=== PATIENT | male | born 1935 | race Caucasian/White ===

== ENCOUNTER 2023-03-08 14:31 | Inpatient (IN) | payer MEDICARE, SELFPAY ==
[~2023-03-08 14:31] MED LIST: Iopamidol-370 76% 500 ML MDV (1 ML CHARGE) ONE
[2023-03-08] MEDS ORDERED: Vancomycin 1.5 GRAM/300 ML BAG 1.5 GM in Premix Bag 1 BAG IVPB SCH (15:00)
[2023-03-08 15:04] LABS: #Neutrophils 8.5 thou/uL (1.40-6.50); %Basophils 0.2 % (0.0-1.0); %Eosinophils 0.2 % (0.0-10.0); %Monocytes 0.2 % (0.0-10.0); %Neutrophils 97.8 % (42.0-75.0); Hemoglobin 12.5 g/dL (14.0-18.0); Mean Corpuscular HGB CONC 33.8 g/dL (32.0-36.0); Mean Corpuscular Hemoglobin 30.2 pg (27.0-31.0); Mean Corpuscular Volume 89.4 fl (78.0-98.0); Mean Platelet Volume 10.8 fL (7.4-10.4); Platelet Count 227 10x3/uL (130-400); RBC Distribution Width 12.2 % (11.5-14.5); Red Blood Cell (RBC) Count 4.14 mill/uL (4.70-6.10); White Blood Cell (WBC) Count 8.7 10x3/uL (4.8-10.8)
[2023-03-08] MEDS ORDERED: Cefepime 2 GM VIAL ONE (15:05)
[2023-03-08 15:07] LABS: Actual Bicarbonate (HCO3v) 19.4 mEq/L (22-28); Base Excess -3.8 mEq/L (-2.0 to +3.0); Calcium, Ionized (venous) 1.11 mmol/L (1.16-1.32); Chloride (VBG) 102 mmol/L (98-106); Hematocrit-VBG 41 % (42.0-52.0); Hemoglobin (Hb) 13.8 g/dL (12.6-17.4); Potassium (VBG) 2.89 mmol/L (3.70-5.30); Sodium 133 mmol/L (133-146); pH (venous) 7.427 (7.32-7.43)
[2023-03-08 15:27] LABS: ALT (SGPT) 19 U/L (8-55); AST (SGOT) 30 U/L (5-34); Albumin 3.1 g/dL (3.4-4.8); Alkaline Phosphatase 101 U/L (40-110); Anion Gap 12 mmol/L (10-20); BUN (Urea Nitrogen) 19 mg/dL (8.4-25.7); Bilirubin, Total 0.7 mg/dL (0.2-1.2); Calc. Creatinine Clearance 0 mL/min (70-130); Calcium 8.8 mg/dL (7.8-10.44); Carbon Dioxide 21 mmol/L (23-31); Chloride 103 mmol/L (98-107); Estimated GFR 39; Globulin 3.6 g/dL (2.4-3.5); Glucose 103 mg/dL (83-110); Potassium 2.9 mmol/L (3.5-5.1); Protein, Total 6.7 g/dL (5.8-8.1); Sodium 133 mmol/L (136-145)
[2023-03-08 15:41] LABS: Bilirubin Negative (Negative); Blood, Urine Large (Negative); Glucose, Urine (Dipstick) Negative (Negative); Ketone, Urine Negative (Negative); Leukocyte Moderate (Negative); Nitrite Negative (Negative); Protein, Urine (Dipstick) > or equal to 300 mg/dL (Neg-Trace); Specific Gravity, Urine 1.015 (1.005-1.030); pH, Urine 8.5 (5.0-9.0)
[2023-03-08 15:44] LABS: Clarity Bloody (Clear)
[2023-03-08 15:49] LABS: CAUTI Indications for Culture Dysuria,urgency,freq; RBC/HPF Greater than 50 HPF (0-3)
[2023-03-08 15:50] LABS: WBC/HPF 21-50 HPF (0-3)
[2023-03-08 15:51] LABS: Urine Culture Reflex Yes Yes
[2023-03-08] MEDS ORDERED: VANCOMYCIN IVPB PRN (17:00)
[2023-03-08] MEDS ORDERED: [UNRECOGNIZED DRUG - OTHER] IVPB PRN (17:00)
[2023-03-08] MEDS ORDERED: Electrolyte Replacement Protocol 1 EACH FS SCH (17:00)
[2023-03-08] MEDS ORDERED: Acetaminophen 325 MG TAB PO PRN (17:00)
[2023-03-08] MEDS ORDERED: Metoclopramide HCl 10 MG/2 ML VIAL IVP PRN (17:04)
[2023-03-08] MEDS ORDERED: Magnesium 2 GM/50 ML BAG (IN WATER) ONE (17:39)
[2023-03-08 18:09] LABS: Magnesium 1.7 mg/dL (1.6-2.6)
[2023-03-08 19:20] VITALS: BMI 26.2
[2023-03-08] MEDS: NS 0.9% w/ 40 MEQ KCL 1,000 ML IV SCH (20:30)
[2023-03-08] MEDS: Famotidine/PF 20 mg/2ml Vial SLOW IVP SCH (20:55)
[2023-03-09] MEDS ORDERED: Cefepime 1 GM in Sodium Chloride 0.9% 100 ML IVPB SCH (03:00)
[2023-03-09 04:00] LABS: Hematocrit 32.2 % (42.0-52.0); Hemoglobin 10.7 g/dL (14.0-18.0); Mean Corpuscular HGB CONC 33.2 g/dL (32.0-36.0); Mean Corpuscular Hemoglobin 30.4 pg (27.0-31.0); Mean Corpuscular Volume 91.5 fl (78.0-98.0); Platelet Count 203 10x3/uL (130-400); RBC Distribution Width 12.7 % (11.5-14.5); Red Blood Cell (RBC) Count 3.52 mill/uL (4.70-6.10); White Blood Cell (WBC) Count 35.4 10x3/uL (4.8-10.8)
[2023-03-09 04:20] LABS: Delete Auto Diff?? YES; Manual Diff?? YES
[2023-03-09 04:25] LABS: Anion Gap 10 mmol/L (10-20); BUN (Urea Nitrogen) 20 mg/dL (8.4-25.7); Calc. Creatinine Clearance 33 mL/min (70-130); Calcium 7.8 mg/dL (7.8-10.44); Carbon Dioxide 18 mmol/L (23-31); Chloride 110 mmol/L (98-107); Estimated GFR 36; Glucose 118 mg/dL (83-110); Potassium 3.1 mmol/L (3.5-5.1); Sodium 135 mmol/L (136-145)
[2023-03-09] MEDS: NS 0.9% w/ 40 MEQ KCL 1,000 ML IV SCH (05:54)
[2023-03-09] MEDS: Potassium Chloride 20 MEQ in Premix Bag 1 BAG IVPB SCH ×2 (05:55→08:35)
[2023-03-09 06:33] LABS: Anisocytosis SLIGHT = 6-15 cells HPF (0-5); Band 19 % (5-11); Burr Cells SLIGHT = 2-5 cells HPF (0-1); CellaVision Operator ID LAB.JMM; Large Platelets 1.9 % (0-5); Lymphocytes 2 % (21-51); Macrocytosis SLIGHT = 6-15 cells HPF (0-5); Metamyelocyte 7 % (0-0); Monocytes 4 % (0-10); Myelocyte 1 % (0-0); Neutrophil 67 % (42-75); Platelet Adequacy Comment Platelets Normal; Polychromasia SLIGHT = 2-3 cells HPF (0-2); Total Cell Count 103
[2023-03-09] MEDS ORDERED: Magnesium 2 GM/50 ML(in water) 2 GM in Premix Bag 1 BAG IVPB SCH (08:00)
[2023-03-09] MEDS ORDERED: FLU VACC QS2023(65UP)/MF59C/PF 60 MCG/0.5 ML SYRINGE IM ONE (09:00)
[2023-03-09] MEDS ORDERED: Meropenem 1 GM in Sodium Chloride 0.9% 100 ML IVPB SCH (12:00)
[2023-03-09] MEDS ORDERED: Sodium Chloride 0.9% 1,000 ML IV SCH (12:30)
[2023-03-09] MEDS ORDERED: Vancomycin 1 GM in Premix Bag 1 BAG IVPB SCH (16:00)
[2023-03-09 18:28] LABS: Anion Gap 12 mmol/L (10-20); BUN (Urea Nitrogen) 24 mg/dL (8.4-25.7); Calc. Creatinine Clearance 34 mL/min (70-130); Calcium 8.1 mg/dL (7.8-10.44); Carbon Dioxide 16 mmol/L (23-31); Chloride 111 mmol/L (98-107); Estimated GFR 38; Glucose 117 mg/dL (83-110); Potassium 3.8 mmol/L (3.5-5.1); Sodium 135 mmol/L (136-145)
[2023-03-09] MEDS: Famotidine/PF 20 mg/2ml Vial SLOW IVP SCH (19:46)
[2023-03-09] MEDS: Meropenem 500 MG in Sodium Chloride 0.9% 100 ML IVPB SCH (19:47)
[2023-03-10 04:08] LABS: Hematocrit 31.2 % (42.0-52.0); Hemoglobin 10.4 g/dL (14.0-18.0); Mean Corpuscular HGB CONC 33.3 g/dL (32.0-36.0); Mean Corpuscular Hemoglobin 30.4 pg (27.0-31.0); Mean Corpuscular Volume 91.2 fl (78.0-98.0); Mean Platelet Volume 11.7 fL (7.4-10.4); Platelet Count 211 10x3/uL (130-400); RBC Distribution Width 12.9 % (11.5-14.5); Red Blood Cell (RBC) Count 3.42 mill/uL (4.70-6.10); White Blood Cell (WBC) Count 30.1 10x3/uL (4.8-10.8)
[2023-03-10 04:32] LABS: Anion Gap 10 mmol/L (10-20); BUN (Urea Nitrogen) 23 mg/dL (8.4-25.7); Calc. Creatinine Clearance 39 mL/min (70-130); Calcium 8.5 mg/dL (7.8-10.44); Carbon Dioxide 19 mmol/L (23-31); Chloride 111 mmol/L (98-107); Estimated GFR 45; Glucose 98 mg/dL (83-110); Potassium 3.8 mmol/L (3.5-5.1); Sodium 136 mmol/L (136-145)
[2023-03-10 04:35] LABS: Delete Auto Diff?? YES; Manual Diff?? YES
[2023-03-10 05:05] LABS: Band 18 % (5-11); Burr Cells SLIGHT = 2-5 cells HPF (0-1); CellaVision Operator ID lab.abc; Eosinophils 3 % (0-10); Lymphocytes 3 % (21-51); Macrocytosis MODERATE=16-30 cells HPF (0-5); Monocytes 1 % (0-10); Neutrophil 75 % (42-75); Platelet Adequacy Comment Platelets Normal; RBC Morphology Within Normal Limits; Total Cell Count 101
[2023-03-10] MEDS: Meropenem 500 MG in Sodium Chloride 0.9% 100 ML IVPB SCH (09:49)
[2023-03-10] MEDS ORDERED: Furosemide 40 MG TAB PO SCH (14:15)
[2023-03-10] MEDS ORDERED: cefTRIAXone\\ROCEPHIN 2 GM in Sodium Chloride 0.9% 100 ML IVPB SCH (15:00)
[2023-03-10] MEDS ORDERED: Meropenem 1 GM in Sodium Chloride 0.9% 100 ML IVPB SCH (20:00)
[2023-03-10] MEDS: Famotidine/PF 20 mg/2ml Vial SLOW IVP SCH (21:36)
[2023-03-10] MEDS: Cefepime 1 GM in Sodium Chloride 0.9% 100 ML IVPB SCH (21:36)
[2023-03-11 07:35] VITALS: TEMP 98.2
[2023-03-11] MEDS: Cefepime 1 GM in Sodium Chloride 0.9% 100 ML IVPB SCH (07:56)
[2023-03-11] MEDS ORDERED: Lisinopril 10 MG TAB PO SCH (09:00)
[2023-03-11 09:09] LABS: Hematocrit 35.7 % (42.0-52.0); Hemoglobin 11.9 g/dL (14.0-18.0); Mean Corpuscular HGB CONC 33.3 g/dL (32.0-36.0); Mean Corpuscular Hemoglobin 30.4 pg (27.0-31.0); Mean Corpuscular Volume 91.1 fl (78.0-98.0); Mean Platelet Volume 11.4 fL (7.4-10.4); Platelet Count 232 10x3/uL (130-400); RBC Distribution Width 13.1 % (11.5-14.5); Red Blood Cell (RBC) Count 3.92 mill/uL (4.70-6.10); White Blood Cell (WBC) Count 21.2 10x3/uL (4.8-10.8)
[2023-03-11 12:34] VITALS: BP 169/84
[2023-03-11] MEDS ORDERED: Ciprofloxacin 500 MG TAB PO SCH (20:00)
== END 2023-03-11 15:17 | DRG 698 ==
LOC: ERS 14:31 → IMCU/EMU 16:31 → T4-A 03-10 15:30
PROVIDERS: ADMIT Family Medicine; ATTEND Internal Medicine
PROC: 4A043R1 Measurement of Venous Saturation, Peripheral, Percutaneous Approach (ICD-10-PCS; 2023-03-08)
PROC: 3E03329 Introduction of Other Anti-infective into Peripheral Vein, Percutaneous Approach (ICD-10-PCS; 2023-03-08)
PROC: 0T9B80Z Drainage of Bladder with Drainage Device, Via Natural or Artificial Opening Endoscopic (ICD-10-PCS; principal; 2023-03-09)
DX: T83.511A Infection and inflammatory reaction due to indwelling urethral catheter, initial encounter (principal); A41.59 Other Gram-negative sepsis; J18.9 Pneumonia, unspecified organism; R65.21 Severe sepsis with septic shock; E87.1 Hypo-osmolality and hyponatremia; T83.021A Displacement of indwelling urethral catheter, initial encounter; N39.0 Urinary tract infection, site not specified; Z66 Do not resuscitate; N40.1 Benign prostatic hyperplasia with lower urinary tract symptoms; N32.89 Other specified disorders of bladder; F03.90 Unspecified dementia, unspecified severity, without behavioral disturbance, psychotic disturbance, mood disturbance, and anxiety; E87.6 Hypokalemia; I12.9 Hypertensive chronic kidney disease with stage 1 through stage 4 chronic kidney disease, or unspecified chronic kidney disease; K80.20 Calculus of gallbladder without cholecystitis without obstruction; N21.0 Calculus in bladder; N18.32 Chronic kidney disease, stage 3b; N31.9 Neuromuscular dysfunction of bladder, unspecified; Z88.0 Allergy status to penicillin; Z98.41 Cataract extraction status, right eye; Z98.42 Cataract extraction status, left eye; Z98.890 Other specified postprocedural states; R31.0 Gross hematuria; I45.81 Long QT syndrome; Y84.6 Urinary catheterization as the cause of abnormal reaction of the patient, or of later complication, without mention of misadventure at the time of the procedure; Z94.7 Corneal transplant status; Z82.49 Family history of ischemic heart disease and other diseases of the circulatory system; Z83.3 Family history of diabetes mellitus
CPT/HCPCS: 36415; 51702; 71045; 74177; 80048; 80053; 81001; 82805; 83605; 83735; 84145; 85025; 85027; 87040; 87077; 87086; 87149; 87186; 93005; 96361; 96365; 96367; J0692; J0696; J2185; J3370; J3475; J3480; J3490; J7030; J7050; Q9967; S0028

== ENCOUNTER 2023-04-19 13:38 | Inpatient (IN) | payer MEDICARE ==
[2023-04-19 15:15] LABS: #Monocytes 0.9 thou/uL (0.11-0.59); #Neutrophils 16.2 thou/uL (1.40-6.50); %Basophils 0.2 % (0.0-1.0); %Eosinophils 0.1 % (0.0-10.0); %Lymphocytes 5.3 % (21.0-51.0); %Monocytes 5.1 % (0.0-10.0); %Neutrophils 88.9 % (42.0-75.0); Hematocrit 39.3 % (42.0-52.0); Hemoglobin 13.3 g/dL (14.0-18.0); Mean Corpuscular HGB CONC 33.8 g/dL (32.0-36.0); Mean Corpuscular Hemoglobin 28.8 pg (27.0-31.0); Mean Corpuscular Volume 85.1 fl (78.0-98.0); Mean Platelet Volume 12.5 fL (7.4-10.4); Platelet Count 153 10x3/uL (130-400); RBC Distribution Width 15.8 % (11.5-14.5); Red Blood Cell (RBC) Count 4.62 mill/uL (4.70-6.10); White Blood Cell (WBC) Count 18.2 10x3/uL (4.8-10.8)
[2023-04-19 15:42] LABS: ALT (SGPT) 15 U/L (8-55); AST (SGOT) 23 U/L (5-34); Albumin 2.8 g/dL (3.4-4.8); Alkaline Phosphatase 152 U/L (40-110); Anion Gap 22 mmol/L (10-20); BUN (Urea Nitrogen) 80 mg/dL (8.4-25.7); Bilirubin, Total 0.8 mg/dL (0.2-1.2); Calc. Creatinine Clearance 0 mL/min (70-130); Calcium 8.3 mg/dL (7.8-10.44); Carbon Dioxide 17 mmol/L (23-31); Chloride 98 mmol/L (98-107); Estimated GFR 7; Globulin 3.5 g/dL (2.4-3.5); Glucose 87 mg/dL (83-110); Potassium 4.2 mmol/L (3.5-5.1); Protein, Total 6.3 g/dL (5.8-8.1); Sodium 133 mmol/L (136-145)
[2023-04-19] MEDS ORDERED: Sodium Chloride 0.9% 100 ML ONE (16:28)
[2023-04-19] MEDS ORDERED: Piperacillin/Tazobactam 3.375 GM VIAL ONE (16:28)
[2023-04-19] MEDS ORDERED: Vancomycin 1 GM/200 ML (FROZEN) BAG ONE (17:19)
[2023-04-19 18:05] LABS: Bacteria/HPF 4+ HPF (None Seen); Bilirubin Negative (Negative); Blood, Urine 2+ (Negative); CAUTI Indications for Culture Dysuria,urgency,freq; Clarity Extra Turbid (Clear); Glucose, Urine (Dipstick) Normal (Negative); Ketone, Urine Negative (Negative); Leukocyte 500 Leu/uL (Negative); Nitrite Negative (Negative); Protein, Urine (Dipstick) 100 mg/dL (Neg-Trace); RBC/HPF 21-50 HPF (0-3); Specific Gravity, Urine 1.008 (1.002-1.036); Squamous Epithelial None Seen HPF (0-3); Urobilinogen Normal mg/dL (Less than 2); WBC/HPF Greater than 50 HPF (0-3)
[2023-04-19 18:18] LABS: Urine Culture Reflex Yes Yes
[2023-04-19] MEDS ORDERED: Ondansetron ODT 4 MG TAB PO PRN (19:06)
[2023-04-19] MEDS ORDERED: Ondansetron PF 4 MG/2 ML Vial IVP PRN (19:06)
[2023-04-19 19:13] VITALS: BMI 25.1
[2023-04-19] MEDS ORDERED: Albumin 25% 25 GM/100 ML BOT IVPB SCH (19:53)
[2023-04-19] MEDS ORDERED: Meropenem 1 GM in Sodium Chloride 0.9% 100 ML IVPB SCH (20:00)
[2023-04-19] MEDS: Sodium Bicarbonate 150 MEQ in Dextrose 5% in Water 1,000 ML IV SCH (20:10)
[2023-04-19] MEDS: Meropenem 0.5 GM in Sodium Chloride 0.9% 100 ML IVPB SCH (23:47)
[2023-04-20 04:36] LABS: Creatinine, Urine 34.23 mg/dL (63-166)
[2023-04-20 05:29] LABS: #Neutrophils 15.1 thou/uL (1.40-6.50); %Basophils 0.1 % (0.0-1.0); %Eosinophils 0.2 % (0.0-10.0); %Lymphocytes 3.6 % (21.0-51.0); %Monocytes 5.8 % (0.0-10.0); %Neutrophils 89.7 % (42.0-75.0); Hematocrit 30.5 % (42.0-52.0); Mean Corpuscular HGB CONC 33.4 g/dL (32.0-36.0); Mean Corpuscular Hemoglobin 28.4 pg (27.0-31.0); Mean Platelet Volume 11.9 fL (7.4-10.4); Platelet Count 129 10x3/uL (130-400); RBC Distribution Width 15.6 % (11.5-14.5); Red Blood Cell (RBC) Count 3.59 mill/uL (4.70-6.10); White Blood Cell (WBC) Count 16.8 10x3/uL (4.8-10.8)
[2023-04-20 05:40] LABS: Hemoglobin 10.2 g/dL (14.0-18.0)
[2023-04-20 05:58] LABS: Albumin 2.9 g/dL (3.4-4.8); Anion Gap 20 mmol/L (10-20); BUN (Urea Nitrogen) 83 mg/dL (8.4-25.7); BUN/Creatinine Ratio 11.61; Calc. Creatinine Clearance 8 mL/min (70-130); Calcium 8.3 mg/dL (7.8-10.44); Carbon Dioxide 19 mmol/L (23-31); Chloride 98 mmol/L (98-107); Estimated GFR 7; Glucose 148 mg/dL (83-110); Phosphorus 3.2 mg/dL (2.3-4.7); Potassium 3.4 mmol/L (3.5-5.1); Sodium 134 mmol/L (136-145)
[2023-04-20 05:59] LABS: Iron 13 ug/dL (65-175); Iron Binding Capacity, Total 118 mcg/dL (261-462)
[2023-04-20] MEDS ORDERED: Potassium Chloride 20 MEQ TAB PO SCH (07:00)
[2023-04-20] MEDS ORDERED: Albumin 25% 25 GM/100 ML BOT IVPB SCH (07:00)
[2023-04-20 08:24] LABS: Magnesium 2.4 mg/dL (1.6-2.6)
[2023-04-20] MEDS ORDERED: FLU VACC QS2023(65UP)/MF59C/PF 60 MCG/0.5 ML SYRINGE IM ONE (09:00)
[2023-04-20] MEDS: Meropenem 0.5 GM in Sodium Chloride 0.9% 100 ML IVPB SCH (10:22)
[2023-04-20] MEDS: Sodium Bicarbonate 150 MEQ in Dextrose 5% in Water 1,000 ML IV SCH ×2 (11:05→21:29)
[2023-04-20] MEDS: Iron, Sodium Ferric Gluconate 250 MG in Sodium Chloride 0.9% 250 ML 250 ML IVPB SCH (11:58)
[2023-04-20] MEDS: Albumin 25% 25 GM/100 ML BOT IVPB SCH ×3 (13:45→23:23)
[2023-04-20] MEDS ORDERED: hydrALAZINE 25 MG TAB PO PRN (14:43)
[2023-04-20] MEDS: Heparin 5,000 UNITS/ML VIAL SC SCH (20:50)
[2023-04-21] MEDS: Sodium Bicarbonate 150 MEQ in Dextrose 5% in Water 1,000 ML IV SCH ×2 (01:37→17:46)
[2023-04-21] MEDS: Albumin 25% 25 GM/100 ML BOT IVPB SCH ×4 (05:34→23:24)
[2023-04-21 05:40] LABS: #Eosinphils 0.1 thou/uL (0.0-0.7); #Neutrophils 11.2 thou/uL (1.40-6.50); %Basophils 0.1 % (0.0-1.0); %Lymphocytes 7.1 % (21.0-51.0); %Monocytes 7.1 % (0.0-10.0); %Neutrophils 83.4 % (42.0-75.0); Hematocrit 26.9 % (42.0-52.0); Hemoglobin 8.9 g/dL (14.0-18.0); Mean Corpuscular HGB CONC 33.1 g/dL (32.0-36.0); Mean Corpuscular Hemoglobin 27.6 pg (27.0-31.0); Mean Corpuscular Volume 83.3 fl (78.0-98.0); Mean Platelet Volume 12.7 fL (7.4-10.4); Platelet Count 125 10x3/uL (130-400); RBC Distribution Width 15.6 % (11.5-14.5); Red Blood Cell (RBC) Count 3.23 mill/uL (4.70-6.10); White Blood Cell (WBC) Count 13.4 10x3/uL (4.8-10.8)
[2023-04-21 06:17] LABS: Albumin 3.3 g/dL (3.4-4.8); Anion Gap 18 mmol/L (10-20); BUN (Urea Nitrogen) 89 mg/dL (8.4-25.7); BUN/Creatinine Ratio 12.47; Calc. Creatinine Clearance 8 mL/min (70-130); Calcium 8.2 mg/dL (7.8-10.44); Carbon Dioxide 24 mmol/L (23-31); Chloride 95 mmol/L (98-107); Estimated GFR 7; Glucose 119 mg/dL (83-110); Phosphorus 2.9 mg/dL (2.3-4.7); Potassium 3.2 mmol/L (3.5-5.1); Sodium 134 mmol/L (136-145)
[2023-04-21] MEDS: Potassium Chloride 20 MEQ TAB PO SCH ×3 (06:44→12:35)
[2023-04-21] MEDS ORDERED: Meropenem 0.5 GM in Sodium Chloride 0.9% 100 ML IVPB SCH (09:00)
[2023-04-21] MEDS: Meropenem 500 MG in Sodium Chloride 0.9% 100 ML IVPB SCH (09:21)
[2023-04-21] MEDS: Heparin 5,000 UNITS/ML VIAL SC SCH ×2 (09:23→21:52)
[2023-04-21] MEDS: Iron, Sodium Ferric Gluconate 250 MG in Sodium Chloride 0.9% 250 ML 250 ML IVPB SCH (10:04)
[2023-04-21] MEDS ORDERED: Epoetin (ESRD) 10,000 UNITS/ML VIAL SC SCH (14:00)
[2023-04-21] MEDS: EPOETIN ALFA-EPBX 10,000 UNITS/ML VIAL SC SCH (14:33)
[2023-04-21 16:56] LABS: Creatinine, Urine 26.21 mg/dL (63-166)
[2023-04-22] MEDS: Albumin 25% 25 GM/100 ML BOT IVPB SCH (05:11)
[2023-04-22] MEDS: Sodium Bicarbonate 150 MEQ in Dextrose 5% in Water 1,000 ML IV SCH ×2 (05:15→17:23)
[2023-04-22 05:19] LABS: #Eosinphils 0.1 thou/uL (0.0-0.7); #Neutrophils 13.3 thou/uL (1.40-6.50); %Basophils 0.2 % (0.0-1.0); %Eosinophils 0.6 % (0.0-10.0); %Lymphocytes 6.9 % (21.0-51.0); %Monocytes 6.2 % (0.0-10.0); %Neutrophils 85.2 % (42.0-75.0); Hematocrit 25.4 % (42.0-52.0); Hemoglobin 8.7 g/dL (14.0-18.0); Mean Corpuscular HGB CONC 34.3 g/dL (32.0-36.0); Mean Corpuscular Hemoglobin 28.4 pg (27.0-31.0); Mean Platelet Volume 11.9 fL (7.4-10.4); Platelet Count 140 10x3/uL (130-400); RBC Distribution Width 15.5 % (11.5-14.5); Red Blood Cell (RBC) Count 3.06 mill/uL (4.70-6.10); White Blood Cell (WBC) Count 15.6 10x3/uL (4.8-10.8)
[2023-04-22 06:06] LABS: Albumin 3.2 g/dL (3.4-4.8); Anion Gap 18 mmol/L (10-20); BUN (Urea Nitrogen) 94 mg/dL (8.4-25.7); BUN/Creatinine Ratio 12.77; Calc. Creatinine Clearance 8 mL/min (70-130); Carbon Dioxide 28 mmol/L (23-31); Chloride 90 mmol/L (98-107); Estimated GFR 7; Glucose 134 mg/dL (83-110); Phosphorus 3.1 mg/dL (2.3-4.7); Potassium 3.2 mmol/L (3.5-5.1); Sodium 133 mmol/L (136-145)
[2023-04-22] MEDS ORDERED: Amlodipine 5 MG TAB PO SCH ×2 (09:00→17:30)
[2023-04-22] MEDS: Isosorbide Mononitrate 30 MG ER.TAB PO SCH (09:33)
[2023-04-22] MEDS: Potassium Chloride 20 MEQ TAB PO SCH ×3 (09:33→18:36)
[2023-04-22] MEDS: Meropenem 500 MG in Sodium Chloride 0.9% 100 ML IVPB SCH (09:33)
[2023-04-22] MEDS: Heparin 5,000 UNITS/ML VIAL SC SCH ×2 (09:34→20:33)
[2023-04-22] MEDS: Iron, Sodium Ferric Gluconate 250 MG in Sodium Chloride 0.9% 250 ML 250 ML IVPB SCH (13:30)
[2023-04-22 19:16] LABS: Anion Gap 18 mmol/L (10-20); BUN (Urea Nitrogen) 96 mg/dL (8.4-25.7); Calc. Creatinine Clearance 8 mL/min (70-130); Calcium 7.9 mg/dL (7.8-10.44); Carbon Dioxide 29 mmol/L (23-31); Chloride 89 mmol/L (98-107); Estimated GFR 7; Glucose 123 mg/dL (83-110); Sodium 132 mmol/L (136-145)
[2023-04-22] MEDS: Acetaminophen 500 MG TAB PO PRN (20:33)
[2023-04-23] MEDS: Sodium Bicarbonate 150 MEQ in Dextrose 5% in Water 1,000 ML IV SCH (03:43)
[2023-04-23 06:54] LABS: Albumin 3.1 g/dL (3.4-4.8); Anion Gap 20 mmol/L (10-20); BUN (Urea Nitrogen) 94 mg/dL (8.4-25.7); BUN/Creatinine Ratio 12.58; Calc. Creatinine Clearance 8 mL/min (70-130); Calcium 7.9 mg/dL (7.8-10.44); Carbon Dioxide 31 mmol/L (23-31); Chloride 89 mmol/L (98-107); Estimated GFR 6; Glucose 126 mg/dL (83-110); Phosphorus 3.3 mg/dL (2.3-4.7); Potassium 4.5 mmol/L (3.5-5.1); Sodium 135 mmol/L (136-145)
[2023-04-23 08:02] LABS: #Eosinphils 0.1 thou/uL (0.0-0.7); #Monocytes 0.9 thou/uL (0.11-0.59); #Neutrophils 19.9 thou/uL (1.40-6.50); %Basophils 0.1 % (0.0-1.0); %Eosinophils 0.5 % (0.0-10.0); %Lymphocytes 5.1 % (21.0-51.0); %Monocytes 4.1 % (0.0-10.0); %Neutrophils 89.2 % (42.0-75.0); Hematocrit 28.8 % (42.0-52.0); Hemoglobin 9.4 g/dL (14.0-18.0); Mean Corpuscular HGB CONC 32.6 g/dL (32.0-36.0); Mean Corpuscular Hemoglobin 27.8 pg (27.0-31.0); Mean Corpuscular Volume 85.2 fl (78.0-98.0); Platelet Count 201 10x3/uL (130-400); RBC Distribution Width 15.8 % (11.5-14.5); Red Blood Cell (RBC) Count 3.38 mill/uL (4.70-6.10); White Blood Cell (WBC) Count 22.3 10x3/uL (4.8-10.8)
[2023-04-23] MEDS ORDERED: Sodium Chloride 0.9% 1,000 ML IV SCH (08:30)
[2023-04-23] MEDS ORDERED: Albumin 25% 25 GM/100 ML BOT IVPB SCH (08:45)
[2023-04-23] MEDS: Isosorbide Mononitrate 30 MG ER.TAB PO SCH (09:19)
[2023-04-23] MEDS: Amlodipine 5 MG TAB PO SCH (09:19)
[2023-04-23] MEDS: Heparin 5,000 UNITS/ML VIAL SC SCH ×2 (10:17→20:25)
[2023-04-23] MEDS: Meropenem 500 MG in Sodium Chloride 0.9% 100 ML IVPB SCH (10:18)
[2023-04-23 11:26] LABS: INR-International Normal Ratio 1.3; PTT 39.3 sec (22.9-36.1); Prothrombin Time 16.8 sec (12.0-14.7)
[2023-04-23 11:44] LABS: HBSAB Concentration Less than 8.00 mIU/mL; HBSAg Index 0.33 S/CO (0-0.99); Hep B Core Total Ab Non-Reactive (NonReactive); Hep B Core Total Index 0.15 S/CO (0-0.79); Hep B Surf AB Non-Reactive (NonReactive); Hep B Surf Ag Non-Reactive S/CO (NonReactive); Hep C IgG Ab Non-Reactive S/CO (NonReactive); Hep C Index 0.05 S/CO (0-0.79)
[2023-04-23] MEDS: Iron, Sodium Ferric Gluconate 250 MG in Sodium Chloride 0.9% 250 ML 250 ML IVPB SCH (13:23)
[2023-04-23] MEDS: Albumin 25% 25 GM/100 ML BOT IVPB SCH ×2 (14:01→18:14)
[2023-04-23 14:39] LABS: A/G Ratio 0.7 (0.7-1.7); Albumin 2.1 g/dL (2.9-4.4); Alpha 1 0.5 g/dL (0.0-0.4); Alpha 2 0.9 g/dL (0.4-1.0); Beta 0.6 g/dL (0.7-1.3); Gamma 1.1 g/dL (0.4-1.8); Globulin, Total 3.1 g/dL (2.2-3.9); M-Spike 0.3 g/dL (Not Observed)
[2023-04-24 05:57] LABS: #Eosinphils 0.2 thou/uL (0.0-0.7); #Monocytes 0.8 thou/uL (0.11-0.59); #Neutrophils 19.4 thou/uL (1.40-6.50); %Basophils 0.2 % (0.0-1.0); %Lymphocytes 5.5 % (21.0-51.0); %Monocytes 3.8 % (0.0-10.0); %Neutrophils 88.5 % (42.0-75.0); Hematocrit 27.9 % (42.0-52.0); Hemoglobin 9.2 g/dL (14.0-18.0); Mean Corpuscular Volume 84.8 fl (78.0-98.0); Mean Platelet Volume 12.1 fL (7.4-10.4); Platelet Count 223 10x3/uL (130-400); RBC Distribution Width 15.9 % (11.5-14.5); Red Blood Cell (RBC) Count 3.29 mill/uL (4.70-6.10); White Blood Cell (WBC) Count 21.9 10x3/uL (4.8-10.8)
[2023-04-24] MEDS ORDERED: Lidocaine 2% PF 5 ML VIAL ONE (06:36)
[2023-04-24] MEDS ORDERED: EPINEPHrine 1 MG/ML VIAL ONE (06:36)
[2023-04-24] MEDS ORDERED: Bupivacaine PF 0.5% 30 ML VIAL ONE (06:36)
[2023-04-24] MEDS ORDERED: Heparin 10,000 UNITS/ 10 ML VIAL ONE (06:36)
[2023-04-24] MEDS ORDERED: CEFAZOLIN 2 GM VIAL ONE (07:25)
[2023-04-24] MEDS ORDERED: Sodium Chloride 0.9% 100 ML ONE (07:25)
[2023-04-24 07:31] LABS: Anion Gap 20 mmol/L (10-20); BUN (Urea Nitrogen) 96 mg/dL (8.4-25.7); Calc. Creatinine Clearance 8 mL/min (70-130); Carbon Dioxide 29 mmol/L (23-31); Chloride 92 mmol/L (98-107); Estimated GFR 6; Glucose 88 mg/dL (83-110); Potassium 4.1 mmol/L (3.5-5.1); Sodium 137 mmol/L (136-145)
[2023-04-24] MEDS ORDERED: PROPOFOL 200 MG/20 ML VIAL ONE (07:39)
[2023-04-24] MEDS ORDERED: Ondansetron PF 4 MG/2 ML Vial ONE (07:39)
[2023-04-24] MEDS ORDERED: Lidocaine 1% PF 5 ML VIAL ONE (07:39)
[2023-04-24] MEDS: Amlodipine 5 MG TAB PO SCH (09:15)
[2023-04-24] MEDS: Meropenem 500 MG in Sodium Chloride 0.9% 100 ML IVPB SCH (09:57)
[2023-04-24] MEDS ORDERED: CEFAZOLIN 2 GM in Sodium Chloride 0.9% 100 ML IVPB SCH (10:00)
[2023-04-24] MEDS: Heparin 5,000 UNITS/ML VIAL SC SCH ×2 (10:14→20:23)
[2023-04-24] MEDS: Isosorbide Mononitrate 30 MG ER.TAB PO SCH (16:16)
[2023-04-24] MEDS: Metoprolol Tartrate 25 MG TAB PO SCH ×2 (16:16→20:23)
[2023-04-25] MEDS ORDERED: Heparin 10,000 UNITS/ 10 ML VIAL ONE (09:02)
[2023-04-25] MEDS: Meropenem 500 MG in Sodium Chloride 0.9% 100 ML IVPB SCH (09:51)
[2023-04-25] MEDS: Isosorbide Mononitrate 30 MG ER.TAB PO SCH (09:51)
[2023-04-25] MEDS: Metoprolol Tartrate 25 MG TAB PO SCH ×2 (09:51→19:53)
[2023-04-25] MEDS: Amlodipine 5 MG TAB PO SCH (09:52)
[2023-04-25] MEDS: Heparin 5,000 UNITS/ML VIAL SC SCH ×2 (09:52→19:53)
[2023-04-25 23:21] LABS: Immunoglob - A (Total IgA) 126 mg/dL (101-645); Immunoglob - G (Total IgG) 1093 mg/dL (Not Available); Immunoglob - M (Total IgM) 202 mg/dL (22-240)
[2023-04-26 06:37] LABS: #Eosinphils 0.3 thou/uL (0.0-0.7); #Monocytes 0.9 thou/uL (0.11-0.59); %Basophils 0.1 % (0.0-1.0); %Eosinophils 1.6 % (0.0-10.0); %Lymphocytes 7.8 % (21.0-51.0); %Monocytes 5.4 % (0.0-10.0); %Neutrophils 84.3 % (42.0-75.0); Hematocrit 27.4 % (42.0-52.0); Hemoglobin 8.7 g/dL (14.0-18.0); Mean Corpuscular HGB CONC 31.8 g/dL (32.0-36.0); Mean Corpuscular Hemoglobin 28.3 pg (27.0-31.0); Mean Corpuscular Volume 89.3 fl (78.0-98.0); Mean Platelet Volume 11.5 fL (7.4-10.4); Platelet Count 253 10x3/uL (130-400); RBC Distribution Width 16.2 % (11.5-14.5); Red Blood Cell (RBC) Count 3.07 mill/uL (4.70-6.10); White Blood Cell (WBC) Count 16.6 10x3/uL (4.8-10.8)
[2023-04-26 06:59] LABS: Anion Gap 16 mmol/L (10-20); BUN (Urea Nitrogen) 43 mg/dL (8.4-25.7); Calc. Creatinine Clearance 13 mL/min (70-130); Calcium 8.2 mg/dL (7.8-10.44); Carbon Dioxide 28 mmol/L (23-31); Chloride 97 mmol/L (98-107); Estimated GFR 12; Glucose 98 mg/dL (83-110); Potassium 3.7 mmol/L (3.5-5.1); Sodium 137 mmol/L (136-145)
[2023-04-26] MEDS: Meropenem 500 MG in Sodium Chloride 0.9% 100 ML IVPB SCH (09:33)
[2023-04-26] MEDS: Amlodipine 5 MG TAB PO SCH (09:34)
[2023-04-26] MEDS: Metoprolol Tartrate 25 MG TAB PO SCH ×2 (09:34→21:28)
[2023-04-26] MEDS: Heparin 5,000 UNITS/ML VIAL SC SCH ×2 (09:34→21:14)
[2023-04-27 05:57] LABS: Anion Gap 14 mmol/L (10-20); BUN (Urea Nitrogen) 27 mg/dL (8.4-25.7); BUN/Creatinine Ratio 8.01; Calc. Creatinine Clearance 17 mL/min (70-130); Calcium 8.6 mg/dL (7.8-10.44); Carbon Dioxide 27 mmol/L (23-31); Chloride 98 mmol/L (98-107); Estimated GFR 17; Glucose 102 mg/dL (83-110); Phosphorus 3.1 mg/dL (2.3-4.7); Potassium 3.5 mmol/L (3.5-5.1); Sodium 135 mmol/L (136-145)
[2023-04-27] MEDS: Metoprolol Tartrate 25 MG TAB PO SCH ×2 (09:30→21:37)
[2023-04-27] MEDS: Amlodipine 10 MG TAB PO SCH (09:30)
[2023-04-27] MEDS: Heparin 5,000 UNITS/ML VIAL SC SCH ×2 (09:31→21:36)
[2023-04-27] MEDS: Meropenem 500 MG in Sodium Chloride 0.9% 100 ML IVPB SCH (12:23)
[2023-04-27] MEDS: Nystatin Powder 15 GM BOT TOP SCH (21:38)
[2023-04-28] MEDS: Acetaminophen 500 MG TAB PO PRN ×2 (00:21→21:15)
[2023-04-28 06:56] LABS: #Basophils 0.1 thou/uL (0.0-0.2); #Eosinphils 0.2 thou/uL (0.0-0.7); #Monocytes 0.9 thou/uL (0.11-0.59); #Neutrophils 12.4 thou/uL (1.40-6.50); %Basophils 0.3 % (0.0-1.0); %Eosinophils 1.6 % (0.0-10.0); %Lymphocytes 9.3 % (21.0-51.0); %Monocytes 5.8 % (0.0-10.0); %Neutrophils 82.1 % (42.0-75.0); Hematocrit 27.3 % (42.0-52.0); Hemoglobin 8.8 g/dL (14.0-18.0); Mean Corpuscular HGB CONC 32.2 g/dL (32.0-36.0); Mean Corpuscular Hemoglobin 28.4 pg (27.0-31.0); Mean Corpuscular Volume 88.1 fl (78.0-98.0); Mean Platelet Volume 12.1 fL (7.4-10.4); Platelet Count 244 10x3/uL (130-400); RBC Distribution Width 16.4 % (11.5-14.5); White Blood Cell (WBC) Count 15.1 10x3/uL (4.8-10.8)
[2023-04-28 07:25] LABS: Anion Gap 14 mmol/L (10-20); BUN (Urea Nitrogen) 49 mg/dL (8.4-25.7); Calc. Creatinine Clearance 12 mL/min (70-130); Calcium 8.6 mg/dL (7.8-10.44); Carbon Dioxide 25 mmol/L (23-31); Chloride 97 mmol/L (98-107); Estimated GFR 11; Glucose 103 mg/dL (83-110); Potassium 3.3 mmol/L (3.5-5.1); Sodium 133 mmol/L (136-145)
[2023-04-28] MEDS: Multivitamin W/ Minerals 1 TAB PO SCH (09:31)
[2023-04-28] MEDS: Amlodipine 10 MG TAB PO SCH (09:31)
[2023-04-28] MEDS: Metoprolol Tartrate 25 MG TAB PO SCH ×2 (09:32→21:17)
[2023-04-28] MEDS: Meropenem 500 MG in Sodium Chloride 0.9% 100 ML IVPB SCH (09:32)
[2023-04-28] MEDS: Heparin 5,000 UNITS/ML VIAL SC SCH ×2 (09:32→21:17)
[2023-04-28] MEDS: Nystatin Powder 15 GM BOT TOP SCH ×2 (09:33→21:18)
[2023-04-28] MEDS: EPOETIN ALFA-EPBX 10,000 UNITS/ML VIAL SC SCH (15:23)
[2023-04-29 06:53] LABS: #Basophils 0.1 thou/uL (0.0-0.2); #Eosinphils 0.2 thou/uL (0.0-0.7); #Monocytes 0.9 thou/uL (0.11-0.59); #Neutrophils 12.5 thou/uL (1.40-6.50); %Basophils 0.4 % (0.0-1.0); %Eosinophils 1.1 % (0.0-10.0); %Lymphocytes 8.7 % (21.0-51.0); %Monocytes 5.8 % (0.0-10.0); %Neutrophils 83.4 % (42.0-75.0); Hematocrit 26.5 % (42.0-52.0); Hemoglobin 8.5 g/dL (14.0-18.0); Mean Corpuscular HGB CONC 32.1 g/dL (32.0-36.0); Mean Corpuscular Volume 87.2 fl (78.0-98.0); Mean Platelet Volume 12.5 fL (7.4-10.4); Platelet Count 274 10x3/uL (130-400); RBC Distribution Width 16.4 % (11.5-14.5); Red Blood Cell (RBC) Count 3.04 mill/uL (4.70-6.10)
[2023-04-29 09:38] LABS: Kappa Lambda Light Chain Ratio 13.27 (0.26-1.65); Kappa Light Chains 1223.6 mg/L (3.3-19.4); Lambda Light Chain 92.2 mg/L (5.7-26.3)
[2023-04-29] MEDS: Nystatin Powder 15 GM BOT TOP SCH ×2 (10:14→22:30)
[2023-04-29] MEDS: Meropenem 500 MG in Sodium Chloride 0.9% 100 ML IVPB SCH (10:15)
[2023-04-29] MEDS: Multivitamin W/ Minerals 1 TAB PO SCH (10:16)
[2023-04-29] MEDS: Metoprolol Tartrate 25 MG TAB PO SCH ×2 (10:16→22:24)
[2023-04-29] MEDS: Heparin 5,000 UNITS/ML VIAL SC SCH ×2 (10:16→22:24)
[2023-04-29] MEDS: Amlodipine 10 MG TAB PO SCH (10:16)
[2023-04-29] MEDS ORDERED: Sterile Water 10 ML VIAL IVP SCH (14:45)
[2023-04-29] MEDS ORDERED: Activase 2 MG VIAL CATH SCH (14:45)
[2023-04-30 04:26] LABS: #Eosinphils 0.1 thou/uL (0.0-0.7); #Monocytes 1.1 thou/uL (0.11-0.59); #Neutrophils 15.7 thou/uL (1.40-6.50); %Basophils 0.2 % (0.0-1.0); %Eosinophils 0.5 % (0.0-10.0); %Monocytes 5.6 % (0.0-10.0); Hematocrit 20.3 % (42.0-52.0); Hemoglobin 6.5 g/dL (14.0-18.0); Mean Corpuscular Hemoglobin 28.3 pg (27.0-31.0); Mean Corpuscular Volume 88.3 fl (78.0-98.0); Mean Platelet Volume 12.2 fL (7.4-10.4); Platelet Count 274 10x3/uL (130-400); RBC Distribution Width 16.5 % (11.5-14.5); White Blood Cell (WBC) Count 18.7 10x3/uL (4.8-10.8)
[2023-04-30 04:51] LABS: Albumin 2.9 g/dL (3.4-4.8); Anion Gap 12 mmol/L (10-20); BUN (Urea Nitrogen) 28 mg/dL (8.4-25.7); BUN/Creatinine Ratio 9.43; Calc. Creatinine Clearance 19 mL/min (70-130); Calcium 9.2 mg/dL (7.8-10.44); Carbon Dioxide 28 mmol/L (23-31); Chloride 102 mmol/L (98-107); Estimated GFR 19; Glucose 122 mg/dL (83-110); Phosphorus 2.3 mg/dL (2.3-4.7); Potassium 3.5 mmol/L (3.5-5.1); Sodium 138 mmol/L (136-145)
[2023-04-30] MEDS: Meropenem 500 MG in Sodium Chloride 0.9% 100 ML IVPB SCH (08:23)
[2023-04-30] MEDS: Metoprolol Tartrate 25 MG TAB PO SCH ×2 (08:24→21:37)
[2023-04-30] MEDS: Multivitamin W/ Minerals 1 TAB PO SCH (08:24)
[2023-04-30] MEDS: Nystatin Powder 15 GM BOT TOP SCH ×2 (08:39→21:37)
[2023-04-30] MEDS ORDERED: Amlodipine 5 MG TAB PO SCH (09:00)
[2023-04-30] MEDS: Acetaminophen 500 MG TAB PO PRN (21:37)
[2023-05-01 05:00] LABS: #Basophils 0.1 thou/uL (0.0-0.2); #Eosinphils 0.2 thou/uL (0.0-0.7); #Neutrophils 14.1 thou/uL (1.40-6.50); %Basophils 0.4 % (0.0-1.0); %Eosinophils 1.1 % (0.0-10.0); %Lymphocytes 7.7 % (21.0-51.0); %Monocytes 6.1 % (0.0-10.0); %Neutrophils 84.1 % (42.0-75.0); Hematocrit 26.6 % (42.0-52.0); Hemoglobin 8.7 g/dL (14.0-18.0); Mean Corpuscular HGB CONC 32.7 g/dL (32.0-36.0); Mean Corpuscular Hemoglobin 29.1 pg (27.0-31.0); Mean Platelet Volume 12.3 fL (7.4-10.4); Platelet Count 250 10x3/uL (130-400); RBC Distribution Width 16.1 % (11.5-14.5); Red Blood Cell (RBC) Count 2.99 mill/uL (4.70-6.10); White Blood Cell (WBC) Count 16.8 10x3/uL (4.8-10.8)
[2023-05-01 05:24] LABS: Anion Gap 13 mmol/L (10-20); BUN (Urea Nitrogen) 44 mg/dL (8.4-25.7); Calc. Creatinine Clearance 14 mL/min (70-130); Calcium 8.9 mg/dL (7.8-10.44); Carbon Dioxide 26 mmol/L (23-31); Chloride 98 mmol/L (98-107); Estimated GFR 13; Glucose 102 mg/dL (83-110); Potassium 3.3 mmol/L (3.5-5.1); Sodium 134 mmol/L (136-145)
[2023-05-01] MEDS ORDERED: Potassium Chloride 20 MEQ TAB PO SCH (07:30)
[2023-05-01] MEDS ORDERED: Heparin 10,000 UNITS/ 10 ML VIAL ONE (08:48)
[2023-05-01] MEDS: Multivitamin W/ Minerals 1 TAB PO SCH (08:58)
[2023-05-01] MEDS: Metoprolol Tartrate 25 MG TAB PO SCH ×2 (09:01→20:57)
[2023-05-01] MEDS: Nystatin Powder 15 GM BOT TOP SCH ×2 (09:03→20:58)
[2023-05-01 10:20] LABS: Magnesium 1.9 mg/dL (1.6-2.6)
[2023-05-01] MEDS ORDERED: Activase 2 MG VIAL CATH SCH (11:00)
[2023-05-01] MEDS ORDERED: Sterile Water 10 ML VIAL IVP SCH (11:00)
[2023-05-01] MEDS ORDERED: Meropenem 500 MG in Sodium Chloride 0.9% 100 ML IVPB SCH (17:00)
[2023-05-01] MEDS: Acetaminophen 500 MG TAB PO PRN (20:57)
[2023-05-02 06:01] VITALS: TEMP 97.9
[2023-05-02] MEDS: Heparin 5,000 UNITS/ML VIAL SC SCH (09:22)
[2023-05-02] MEDS: Multivitamin W/ Minerals 1 TAB PO SCH (09:22)
[2023-05-02] MEDS: Metoprolol Tartrate 25 MG TAB PO SCH (09:22)
[2023-05-02] MEDS: Nystatin Powder 15 GM BOT TOP SCH (09:31)
[2023-05-02 12:02] VITALS: BP 110/60
== END 2023-05-02 12:40 | DRG 698 ==
LOC: ERS 13:38 → ERHOLD 18:33 → SURG B 22:49
PROVIDERS: ADMIT Internal Medicine; ATTEND Family Medicine
PROC: 30233J1 Transfusion of Nonautologous Serum Albumin into Peripheral Vein, Percutaneous Approach (ICD-10-PCS; 2023-04-19)
PROC: B5131ZA Fluoroscopy of Right Jugular Veins using Low Osmolar Contrast, Guidance (ICD-10-PCS; principal; 2023-04-24)
PROC: 3E03329 Introduction of Other Anti-infective into Peripheral Vein, Percutaneous Approach (ICD-10-PCS; 2023-04-24)
PROC: 05H533Z Insertion of Infusion Device into Right Subclavian Vein, Percutaneous Approach (ICD-10-PCS; 2023-04-24)
PROC: 05HN33Z Insertion of Infusion Device into Left Internal Jugular Vein, Percutaneous Approach (ICD-10-PCS; 2023-04-24)
PROC: B5141ZA Fluoroscopy of Left Jugular Veins using Low Osmolar Contrast, Guidance (ICD-10-PCS; 2023-04-24)
PROC: 3E033XZ Introduction of Vasopressor into Peripheral Vein, Percutaneous Approach (ICD-10-PCS; 2023-04-24)
PROC: 30233N1 Transfusion of Nonautologous Red Blood Cells into Peripheral Vein, Percutaneous Approach (ICD-10-PCS; 2023-04-30)
DX: T83.511A Infection and inflammatory reaction due to indwelling urethral catheter, initial encounter (principal); A41.9 Sepsis, unspecified organism; N18.6 End stage renal disease; R65.21 Severe sepsis with septic shock; N17.9 Acute kidney failure, unspecified; I12.0 Hypertensive chronic kidney disease with stage 5 chronic kidney disease or end stage renal disease; C90.00 Multiple myeloma not having achieved remission; Z66 Do not resuscitate; N39.0 Urinary tract infection, site not specified; N31.9 Neuromuscular dysfunction of bladder, unspecified; R41.82 Altered mental status, unspecified; E87.6 Hypokalemia; F03.90 Unspecified dementia, unspecified severity, without behavioral disturbance, psychotic disturbance, mood disturbance, and anxiety; B96.20 Unspecified Escherichia coli [E. coli] as the cause of diseases classified elsewhere; R33.9 Retention of urine, unspecified; R53.81 Other malaise; N40.1 Benign prostatic hyperplasia with lower urinary tract symptoms; D63.1 Anemia in chronic kidney disease; Z98.41 Cataract extraction status, right eye; Z88.0 Allergy status to penicillin; Z79.899 Other long term (current) drug therapy; Z98.890 Other specified postprocedural states
CPT/HCPCS: 36415; 36430; 71045; 74176; 76770; 76870; 80048; 80053; 80069; 81001; 82274; 82306; 82550; 82570; 82607; 82728; 83540; 83550; 83605; 83735; 83883; 83970; 84155; 84156; 84165; 84300; 84540; 85025; 85610; 85730; 86704; 86850; 86900; 86901; 87040; 87077; 87086; 87149; 87186; 90935; 93005; 96365; 96367; C1751; C1752; G0257; J0171; J1644; J2001; J2185; J2405; J2543; J2704; J2916; J3370-JW; J3490; J7050; J7070; P9016; P9047; Q5106; S0020